=== PATIENT | male | born 1970 | race Caucasian/White ===

== ENCOUNTER → 2018-12-15 10:18 | Day surgery (SDC) | payer OTHER ==
[~2018-12-15 10:18] MED LIST: Acetaminophen TAB* 325 MG PO PRN; Buffered Lidocaine 1% SYRIN* 1 ML/SYRINGE INTRADERM ONE; Bupivacaine 0.25% SDV PF* 10 ML VIAL INJ ONE; Clindamycin 900 MG/D5W BAG(*) 900 MG/50 ML BAG IVPB ONE; Dexamethasone IV* 4 MG/ML 1 ML (4 MG) ONE; DiMENhydriNATE IV* 50 MG/ML VIAL IV PUSH PRN; Famotidine IV* 10 MG/ML 2 ML (20 mg) IV ONE; Famotidine IV* 10 MG/ML 2 ML (20 mg) ONE; HYDROcodone/ACETAMIN 5-325 MG* 1 TAB ONE; HYDROcodone/ACETAMIN 5-325 MG* 1 TAB PO PRN; Ketorolac INJ* 30 MG/ML 1 ML VIAL ONE; Lactated Ringers 1000 ML Bag* 1,000 ML IV SCH; Lidocaine 2% PF * 5 ML VIAL ONE; Midazolam* 1 MG/ML 2 ML VIAL (2 MG) ONE; Naloxone* 0.4 MG/ML 1 ML VIAL IV PRN; Ondansetron INJ* 2 MG/ML VIAL ONE; PROCHLORPERAZINE INJ 5 MG/ML 2 ML VIAL IV PRN; Propofol* 10 MG/ML 20 ML BTL ONE; fentaNYL* 50 MCG/ML 2 ML VIAL (100 MCG VIAL) IV PRN; fentaNYL* 50 MCG/ML 2 ML VIAL (100 MCG VIAL) ONE
[2018-12-15 13:52] VITALS: BP 110/72
--- NOTE | 2018-12-15 23:34 | OP ---
DATE OF OPERATION: 12/15/18 - [facility] DATE OF : 66 SURGEON: Lincoln Mcdonnell MD SOD STRIPPER: CARLOS Rebolledo. An surgical assistant certified was needed for the procedure to aid in positioning of the arm and retraction. ANESTHESIOLOGIST: Dr. Hernandez. ANESTHESIA: General. PRE-OP DIAGNOSES: 1. Right carpal tunnel syndrome. 2. Right cubital tunnel syndrome. POST-OP DIAGNOSES: 1. Right carpal tunnel syndrome. 2. Right cubital tunnel syndrome. OPERATIVE PROCEDURE: 1. Right ulnar nerve decompression at the elbow with anterior transposition. 2. Right carpal tunnel release. INDICATIONS: Orlando is 48 years old. He has severe disease with electrodiagnostic and clinically severe bilateral carpal tunnel syndrome, also with clinical and electrodiagnostic right ulnar neuropathy at the elbow. He already has a perched and subluxated ulnar nerve. We had talked about risks and benefits. He had wanted to proceed with surgery. ESTIMATED BLOOD LOSS: 2 mL. COMPLICATIONS: None. FINDINGS: See above and below. DESCRIPTION OF PROCEDURE: Orlando was seen in the preoperative holding area. The correct site, side, and procedure were identified. We came back to the operating room. The arm was prepped and draped in the usual fashion and time- out was performed. The arm was exsanguinated with the Esmarch and the tourniquet inflated to 250 mmHg. I began by making a 2- to 3-cm incision in the proximal palm in the typical location for an open carpal tunnel release. Dissection was carried down through the subcutaneous tissue and palmar fascia. The transverse carpal ligament was released off the radial aspect of the hook of the hamate. The release was completed distally and then proximally I released the subcutaneous tissue and fascia and retracted this out of the way and then released the remainder of the transverse carpal ligament and distal antebrachial fascia under direct visualization with the tenotomy scissors. Once I had completed the release, everything was looking good. So, I irrigated out the wound and the skin was closed with 4-0 nylon suture. I then abducted and externally rotated the arm. I made a curvilinear incision centered over the Stevens's ligament. Dissection was carried down and the ulnar nerve was exposed as it coursed over the medial epicondyle before diving down deep to the FCU fascia. I unroofed the ulnar nerve. I placed an appendiceal retractor proximally and released the ulnar nerve past the arcade of [place]. I then came distally and released the Stevens's ligament. I bluntly dissected the subcutaneous tissue distally so as to preserve the medial antebrachial cutaneous nerve. The FCU fascia was released. The 2 ends of the FCU muscle were split and then the subfascial layer was released as well. The nerve was kinked where it coursed from its perched position over the medial epicondyle and where it dived down under the FCU fascia. I preserved the motor branches. I elevated the subcutaneous tissue off the flexor pronator fascia. I then released the medial intermuscular septum and the leading edge of the FCU fascia. I raised step-cut flaps off the flexor pronator fascia, the muscle was dissected off the undersurface of the fascia. The intermuscular septi were released. He had some degeneration in the area of the medial epicondyle and that was excised. A full neurolysis had been performed using a [place] drain around the nerve for gentle retraction. The nerve was then placed in the transposed position. There was no kinking of the nerve. I then sewed the 2 ends of my fascial flaps end-to-end with 4-0 Ethibond suture. There was no kinking or compression of the nerve whatsoever. Everything was looking good. Hemostasis had been obtained with bipolar and the Bovie. The subcutaneous tissue was reapproximated with 3-0 Vicryl. The skin was closed with 3-0 Monocryl and Steri- Strips. Marcaine was infiltrated all around the operative sites. A long-arm splint was applied and the patient was taken to the recovery room in stable condition. [id number]/[facility] #: [id number] [facility]PITALNorbert
== END | disposition home or self-care (01) ==
LOC: OREAST 10:18
PROVIDERS: ATTEND Orthopaedic Surgery Hand Surgery
DX: G56.21 Lesion of ulnar nerve, right upper limb (principal); G56.01 Carpal tunnel syndrome, right upper limb; I10 Essential (primary) hypertension; E11.9 Type 2 diabetes mellitus without complications; K21.9 Gastro-esophageal reflux disease without esophagitis
CPT/HCPCS: J1100; J1885; J2250; J2405; J2704; J3010; J3490

== ENCOUNTER → 2019-01-02 06:48 | Day surgery (SDC) | payer OTHER ==
[~2019-01-02 06:48] MED LIST changes: -Bupivacaine 0.25% SDV PF* 10 ML VIAL INJ ONE; -Clindamycin 900 MG/D5W BAG(*) 900 MG/50 ML BAG IVPB ONE; -Dexamethasone IV* 4 MG/ML 1 ML (4 MG) ONE; -HYDROcodone/ACETAMIN 5-325 MG* 1 TAB ONE; -HYDROcodone/ACETAMIN 5-325 MG* 1 TAB PO PRN; -Midazolam* 1 MG/ML 2 ML VIAL (2 MG) ONE; +Midazolam* 1 MG/ML 5 ML VIAL (5 MG) ONE; -PROCHLORPERAZINE INJ 5 MG/ML 2 ML VIAL IV PRN; +ROPIVACAINE 5 MG/ML 30 ML BTL (0.5%) ONE; -fentaNYL* 50 MCG/ML 2 ML VIAL (100 MCG VIAL) IV PRN; +oxyCODONE TAB* 5 MG TAB PO PRN
[2019-01-02 09:41] VITALS: BP 110/71
--- NOTE | 2019-01-02 13:24 | OP ---
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 Roland. ANESTHESIA: Local MAC. PRE-OP DIAGNOSIS: Left carpal tunnel syndrome. POST-OP DIAGNOSIS: Left carpal tunnel syndrome. OPERATIVE PROCEDURE: Left open carpal tunnel release. INDICATIONS: Orlando is 48. He has left carpal tunnel syndrome that is severe electrodiagnostically. He has undergone right carpal and cubital tunnel releases with transposition previously for severe disease there as well. He did not have electrodiagnostic changes at the elbow on the left and it seemed like more of the symptoms were carpal tunnel related and so we elected to do just a carpal tunnel release on the left with the understanding that there is a chance we may have to come back and address the ulnar nerve at a later date. ESTIMATED BLOOD LOSS: 1 mL. COMPLICATIONS: None. FINDINGS: See above and below. DESCRIPTION OF PROCEDURE: Orlando was seen in the preoperative holding area. The correct site, side, and procedure were identified. We came back to the operating room, where he had a time-out and then I infiltrated the operative area with 0.5% ropivacaine. The arm was then prepped and draped in the usual fashion and time-out was performed. The arm was exsanguinated with the Esmarch and the tourniquet was inflated to 250 mmHg. I made a 2 to 3 cm longitudinal incision in the typical location for an open carpal tunnel release. Dissection was carried down through the subcutaneous tissue and the palmar fascia. A self-retainer was placed. The transverse carpal ligament was released off the radial aspect of the hook of the hamate from distal to proximal. Proximally, I released the subcutaneous tissue and retracted that out of the way with the Maria Elena retractor. I then released the remainder of the transverse carpal ligament and distal antebrachial fascia so as to ensure there was no compression on the nerve proximally. I rechecked the decompression distally and proximally, everything looked good. We irrigated out the wound. The skin was closed with 4-0 nylon suture. Soft dressings were applied and the tourniquet was deflated and he was taken to the recovery room in stable condition. [id number]/[facility] #: [id number] [facility] SYSTEM[facility]
== END | disposition home or self-care (01) ==
LOC: OR 06:48
PROVIDERS: ATTEND Orthopaedic Surgery Hand Surgery
DX: G56.02 Carpal tunnel syndrome, left upper limb (principal); I10 Essential (primary) hypertension; Z72.0 Tobacco use; K21.9 Gastro-esophageal reflux disease without esophagitis; F32.9 Major depressive disorder, single episode, unspecified; Z88.0 Allergy status to penicillin; M19.90 Unspecified osteoarthritis, unspecified site
CPT/HCPCS: J1885; J2250; J2405; J2704; J2795; J3010

== ENCOUNTER 2019-11-29 13:19 | Emergency (ER) | payer OTHER ==
[2019-11-29 14:01] VITALS: BP 136/69
--- NOTE | 2019-11-29 14:16 | UC ---
Ear Complaint HPI - HPI Summary HPI Summary: 49-year-old male comes in with chief complaint of right ear and neck pain. Started couple days ago. About 5 out of 10. He does have some rhinorrhea. No complaint of any dental problems. Pain is in the right side of the neck and the right ear. No trauma. No fevers or chills. - History of Current Complaint Chief Complaint: UCEar Stated Complaint: RT EAR PAIN Time Seen by Provider: 11/29/19 14:02 Pain Intensity: 5 - Allergies/Home Medications Allergies/Adverse Reactions: Allergies Allergy/AdvReac Type Severity Reaction Status Date / Time Penicillins Allergy Anaphylatic Verified 11/29/19 13:55 Shock PMH/Surg Hx/FS Hx/Imm Hx Previously Healthy: Yes Cardiovascular History: Hypertension GI/ History: Gastroesophageal Reflux - Surgical History Surgical History: None - Family History Known Family History: Positive: Cardiac Disease - Social History Alcohol Use: None Substance Use Type: None Smoking Status (MU): Smoker, Current Status Unknown Type: Smokeless Tobacco Amount Used/How Often: 1 can weekly Have You Smoked in the Last Year: No Household Exposure Type: Cigarettes Review of Systems All Other Systems Reviewed And Are Negative: Yes Constitutional: Positive: Other - SEE HPI Skin: Positive: Negative Eyes: Positive: Negative ENT: Positive: Ear Ache, Other - SEE HPI Respiratory: Positive: Negative Cardiovascular: Positive: Negative Gastrointestinal: Positive: Negative Motor: Positive: Negative Neurovascular: Positive: Negative Musculoskeletal: Positive: Negative Neurological: Positive: Negative Psychological: Positive: Negative Is Patient Immunocompromised?: No Physical Exam Appearance: Well-Appearing, No Pain Distress, Well-Nourished Vital Signs: Initial Vital Signs Temp 97.5 F 11/29/19 13:57 Pulse 68 11/29/19 13:57 Resp 15 11/29/19 13:57 BP 136/69 11/29/19 13:57 Pulse Ox 98 11/29/19 13:57 Vital Signs Reviewed: Yes Eye Exam: Normal Eyes: Positive: Conjunctiva Clear ENT: Positive: Pharynx normal, TMs normal, Other - Right ear canal has a small amount of cerumen and there is some detritus in the right ear canal. Patient is mildly tender on the right side of the anterior neck. Normal carotid pulses. I do not appreciate any swelling in the neck. No bruit on auscultation. Neck: Positive: Supple Respiratory: Positive: Lungs clear, Normal breath sounds, No respiratory distress Cardiovascular: Positive: RRR Musculoskeletal: Positive: Strength Intact, ROM Intact Neurological: Positive: Alert, Muscle Tone Normal Psychological: Positive: Age Appropriate Behavior Skin Exam: Normal Ear Complaint Course/Dx - Course Course Of Treatment: There is some debris in the right ear canal. Patient also has pain in the right lateral anterior neck. I do not appreciate any irregularity and a carotid artery by auscultation or palpation. No rash. The plan will be to treat with doxycycline by mouth and ofloxacin topical in the ear. Discussed the possibility of problems with the carotid artery can cause pain in the neck and ear and if there was any problems with carotid arteries patient needs to get reevaluated right away in the emergency department. When I discussed all of this with the patient, he reported he felt comfortable treating with the antibiotics first and going to the emergency department if not improved or worse. - Differential Dx/Diagnosis Provider Diagnosis: Neck pain on right side, Right ear pain Discharge ED - Sign-Out/Discharge Documenting (check all that apply): Patient Departure All imaging exams completed and their final reports reviewed: No Studies - Discharge Plan Condition: Stable Disposition: HOME Prescriptions: DOXYcycline CAP(*) [DOXYcycline 100MG CAP(*)] 100 mg PO BID #20 cap Ofloxacin 0.3% (Ear Drop)* [Floxin 0.3% OTIC.[place] (Ear Drop)] 5 drop RIGHT EAR BID #1 btl Patient Education Materials: Earache (ED), Acute Neck Pain (ED) Referrals: Chuck Blum PA [Primary Care Provider] - Additional Instructions: FOLLOW UP WITH YOUR DOCTOR. GO TO THE EMERGENCY DEPARTMENT IF NOT IMPROVING OR WORSE; CONTINUED OR WORSE PAIN, FEVER, DIFFICULTY SWALLOWING OR BREATHING, YOU FEEL ILL OR ANY QUESTIONS OR CONCERNS. - Billing Disposition and Condition Condition: STABLE Disposition: Home
== END 2019-11-29 14:33 | disposition home or self-care (01) ==
LOC: UCCORT 13:19
DX: M54.2 Cervicalgia (principal); H92.01 Otalgia, right ear; I10 Essential (primary) hypertension; F17.290 Nicotine dependence, other tobacco product, uncomplicated; Z88.0 Allergy status to penicillin
CPT/HCPCS: 99212; G0463